=== PATIENT | male | born 2000 | race Caucasian/White ===

== ENCOUNTER 2019-03-19 16:47 | Emergency (ER) | payer OTHER ==
[2019-03-19 17:07] VITALS: BP 113/61; PULSE 73; TEMP 98.2; BMI 29.6
[2019-03-19] MEDS ORDERED: KETOROLAC TROMETHAMINE 30 MG/1 ML VIAL IM ONE (17:29)
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
[2019-03-19] MEDS ORDERED: KETOROLAC TROMETHAMINE 30 MG/1 ML VIAL ONE (17:39)
== END 2019-03-19 18:02 | disposition home or self-care (01) ==
LOC: JERFT 16:47
PROC: 3E0233Z Introduction of Anti-inflammatory into Muscle, Percutaneous Approach (ICD-10-PCS; principal; 2019-03-19)
DX: M54.89 Other dorsalgia (principal); V49.49XA Driver injured in collision with other motor vehicles in traffic accident, initial encounter; W22.11XA Striking against or struck by driver side automobile airbag, initial encounter; Y92.414 Local residential or business street as the place of occurrence of the external cause; Y93.89 Activity, other specified; Y99.8 Other external cause status
CPT/HCPCS: 99281-25